=== PATIENT | female | born 1985 | race Caucasian/White ===

== ENCOUNTER 2017-11-06 16:51 | Emergency (ER) | payer OTHER ==
[2017-11-06 17:32] VITALS: TEMP 97.5
--- NOTE | 2017-11-06 17:55 | ED PDOC ---
Arrival/HPI - General Chief Complaint: Flu-like Symptoms Time Seen by Provider: 11/06/17 17:26 Historian: Patient, Family (translating) - History of Present Illness Narrative History of Present Illness (Text): 11/06/17 17:49 Pt is a 32 to F who is 6 mnths , presents with family c/o fever and flu- like symptoms x 3 days. Pt states it began with sore throat, fever and body aches that progressed into a cough and chills. She is concerned that she has a hard time catching her breath while coughing with thick, sometimes colored phlegm from nose and throat. Associated symptoms include HOPKINS, watery eyes, and chills or shakes. Denies nausea, vomiting, or chest pain. Pt contacted her Primary first who instructed her to visit the ED for evaluation. Past Medical History - Provider Review Nursing Documentation Reviewed: Yes - Travel History Have you recently traveled outside [place] w/in the past 3 mons?: Yes - Past History Past History: No Previous - Infectious Disease Hx of Infectious Diseases: None - Reproductive Currently : Yes - Cardiac Hx Cardiac Disorders: Yes - Psychiatric Hx Substance Use: No - Surgical History Hx Section: Yes Family/Social History - Physician Review Nursing Documentation Reviewed: Yes Family/Social History: No Known Family HX Smoking Status: Never Smoked Hx Alcohol Use: No Hx Substance Use: No Allergies/Home Meds Allergies/Adverse Reactions: Allergies No Known Allergies Allergy (Verified 11/06/17 17:32) Home Medications: Home Meds Medication Instructions Recorded Confirmed Multivit/Folic Acid/I 1 tab PO DAILY 11/06/17 11/06/17 [ Plus] Review of Systems - Review of Systems Constitutional: Fevers. absent: Normal, Fatigue, Weight Change, Night Sweats, Other Eyes: Other (watery eyes). absent: Normal, Vision Changes, Photophobia, Eye Pain ENT: Sore Throat, Sinus Congestion. absent: Normal, Hearing Changes, Tinnitus, TMJ Pain, Voice Changes, Rhinorrhea, Epistaxis, Other Respiratory: Cough. absent: Normal, SOB, Sputum, Wheezing, Other Cardiovascular: Normal Musculoskeletal: Normal. absent: Arthralgias, Back Pain, Neck Pain, Joint Swelling, Myalgias, Other Skin: Normal. absent: Rash, Pruritis, Skin Lesions, Laceration, Abscess, Ulcer , Cellulitis, Other Neurological: Normal. absent: Headache, Dizziness, Focal Weakness, Gait Changes , Speech Changes, SC, Facial Droop, DE, Disequilibrium, SE, Seizure, Other Physical Exam Vital Signs Reviewed: Yes Vital Signs Temp Pulse Resp BP Pulse Ox 11/06/17 17:23 97.5 F L 116 H 18 112/75 99 Temperature: Afebrile Blood Pressure: Normal Pulse: Regular Respiratory Rate: Normal Appearance: Positive for: Well-Appearing, Comfortable Pain Distress: None Mental Status: Positive for: Alert and Oriented X 3 - Systems Exam Head: Present: Atraumatic, Normocephalic Pupils: Present: PERRL Extroacular Muscles: Present: EOMI Conjunctiva: Present: Normal Mouth: Present: Moist Mucous Membranes Pharnyx: Present: Normal. No: ERYTHEMA, EXUDATE, TONSILS ENLARGED, Peritonsilar Swelling, Uvular Deviation, Muffled/Hoarse Voice, Strider, Soft Palate/Uvular Edema, Other Nose (Internal): Present: Normal Inspection, Rhinorrhea Neck: Present: Normal Range of Motion. No: Meningeal Signs, MIDLINE TENDERNESS , Paraspinal Tenderness, JVD, Lymphadenopathy, Bruit, Trachea Midline, Other Respiratory/Chest: Present: Clear to Auscultation, Good Air Exchange. No: Respiratory Distress, Accessory Muscle Use, Wheezes, Decreased Breath Sounds, Rales, Retracting, Rhonchi, Tachypneic, Tender to Palpation, Other Cardiovascular: Present: Regular Rate and Rhythm, Normal S1, S2 Abdomen: Present: Normal Bowel Sounds, Other ( of 6 mnths). No: Tenderness, Distention, Peritoneal Signs Back: Present: Normal Inspection Upper Extremity: Present: Normal Inspection. No: Cyanosis, Edema Lower Extremity: Present: Normal Inspection. No: Edema Neurological: Present: GCS=15, CN II-XII Intact, Speech Normal Skin: Present: Warm, Dry, Normal Color. No: Rashes, Diaphoretic, Erythematous, Induration, Hot, Cold, Pale, Laceration, Abscess, Abrasion, Other Psychiatric: Present: Alert, Oriented x 3, Normal Insight, Normal Concentration Medical Decision Making ED Course and Treatment: Impression: Pt is a 32 to F who is 6 mnths , presents with family c/o fever and flu- like symptoms x 3 days. Plan: -Influenza Ag test - Lab Interpretations Lab Results: Lab Results 11/06/17 17:50: Influenza Typ A,B (EIA) Pos for influenza b H Disposition/Present on Arrival - Present on Arrival Any Indicators Present on Arrival: Yes History of DVT/PE: No History of Uncontrolled Diabetes: No Urinary Catheter: No History of Decub. Ulcer: No History Surgical Site Infection Following: None - Disposition Have Diagnosis and Disposition been Completed?: Yes Diagnosis: Influenza Disposition: HOME/ ROUTINE Disposition Time: 18:54 Patient Plan: Discharge Discharge Instructions (ExitCare): Influenza (ED), Oseltamivir (By mouth) Additional Instructions: Dear Patient, You have been diagnosed Influenza that responds best with supportive care such as plenty of rest, fluids, and Tamifllu to lessen the severity of your condition. Please make sure you wash your hands frequently to avoid transmission of the virus to others. If you experience severe fever, pain, chest pain or shortness of breath of any other alarming symptoms, return to the emergency room immediately. Please follow up with your Primary Doctor in less than a week. All the best in your recovery. Prescriptions: Oseltamivir Phosphate [Tamiflu] 75 mg PO BID 5 Days #10 capsule Forms: [employer] ([place])
[2017-11-06 19:27] VITALS: BP 123/69; PULSE 98; RESP 20; O2SAT 98
== END 2017-11-06 19:27 | disposition home or self-care (01) ==
LOC: ED 16:51
DX: J11.1 Influenza due to unidentified influenza virus with other respiratory manifestations (principal)